=== PATIENT | male | born 1970 | race Caucasian/White ===

== ENCOUNTER 2016-05-22 19:17 | Emergency (ER) | payer BC, OTHER ==
[2016-05-22 19:31] VITALS: PULSE 56; TEMP 97; BMI 26.9
[2016-05-22] MEDS ORDERED: SODIUM CHLORIDE 1,000 ML IV STA (20:40)
[2016-05-22] MEDS ORDERED: PANTOPRAZOLE SODIUM 40 MG in SODIUM CHLORIDE 100 ML IVPB ONE (20:40)
[2016-05-22] MEDS ORDERED: ONDANSETRON 4 MG/2 ML VIAL IVPB ONE (20:40)
[2016-05-22] MEDS ORDERED: FAMOTIDINE 20 MG/50 ML IVPB 50 ML IVPB ONE ×2 (20:40→21:26)
[2016-05-22] MEDS ORDERED: PANTOPRAZOLE SODIUM 100 ML IVPB ONE (21:25)
[2016-05-22] MEDS ORDERED: ONDANSETRON 4 MG/2 ML VIAL ONE (21:25)
[2016-05-22 21:54] LABS: BASOPHIL 0.2 % (0-2.0); EOSINOPHIL 0.1 % (0-4.5); MCH 30.6 pg (25.7-33.7); MCHC 34.4 g/dl (32.0-35.9); MEAN CELL VOLUME 88.9 fl (80-96); MEAN PLT VOLUME 8.4 fl (7.5-11.1); NEUTROPHILS 85.9 % (42.8-82.8); PLATELET COUNT 215 K/MM3 (134-434); WHITE BLOOD COUNT 14.3 K/mm3 (4.0-10.0)
--- NOTE | 2016-05-22 22:03 | PDOC ---
History of Present Illness - General Chief Complaint: Lightheaded Stated Complaint: NAUSEA/VOMITING Time Seen by Provider: 05/22/16 19:47 History Source: Patient Exam Limitations: No Limitations - History of Present Illness Travel History: No Initial Comments: 05/22/16 21:58 46yo Male patient presents to ED c/o n/v, dizziness, lightheadedness, sweating starting this afternoon, after eating a salad. Patient denies CP, Abd pain, back pain, dysuria, diarrhea, constipation, fever, diff breathing, rash, or any other complaints at this time. Timing/Duration: reports: constant Quality: reports: moderate Abdominal Pain Onset Location: denies: RUQ, LUQ, RLQ, LLQ, epigastric, periumbilical, suprapubic, generalized abdomen, flank, unknown, other Pain Radiation: denies: no radiation, RUQ, LUQ, RLQ, LLQ, epigastric, periumbilical, flank, groin, scapula, shoulder, chest, back, other Activities at Onset: reports: eating Treatment Prior to Arrive: worse with: analgesics, antacids, cold pack, heat, laxative, enema, other Aggravating Factors: worse with: None, Defecation, Eating, Emotional upset, Exertion, [place], Movement, Voiding, Change in position Alleviating Factors: worse with: None, Belching, Shallow Breathing, Defecation, Eating, Holding Breath, Passing Gas, Change in Position, Rest, Voiding, Vomiting Past History - Travel Traveled outside of the country in the last 30 days: No Close contact w/someone who was outside of country & ill: No - Past Medical History Allergies/Adverse Reactions: Allergies Allergy/AdvReac Type Severity Reaction Status Date / Time No Known Allergies Allergy Verified 05/22/16 19:31 Home Medications: Ambulatory Orders Ondansetron [Zofran Odt -] 4 mg SL Q6H PRN #20 od.tablet 05/23/16 Pantoprazole Sodium [Protonix -] 40 mg PO DAILY #7 tablet.ec 05/23/16 - Surgical History Abdominal Surgery: Yes (hernia) - Psycho/Social/Smoking Cessation Hx Suicidal Ideation: No Smoking History: Former smoker Have you smoked in the past 12 months: No Information on smoking cessation initiated: No Abd/GI Specific PMHX - Complaint Specific PMHX Colitis: No Diverticulitis: No Gall Bladder Disease: No GERD: No Hepatitis: No Irritable Bowel Synd (IBS): No Pancreatitis: No GI Ulcer Disease: No Review of Systems - Review of Systems Able to Perform ROS?: Yes Is the patient limited Lithuanian proficient: No Constitutional: No: Chills, Fever, Weakness Respiratory: No: Cough, Shortness of Breath, Stridor, Wheezing Cardiac (ROS): Yes: Lightheadedness. No: Chest Pain, Edema, Irregular Heart Rate, Palpitations, Syncope, Chest Tightness ABD/GI: Yes: Nausea, Poor Fluid Intake, Vomiting. No: Abdominal Distended, Abd. Pain w/ defecation, Constipated, Diarrhea, Difficulty Swallowing, Poor Appetite, Rectal Bleeding, Indigestion, Abdominal cramping : No: Burning, Dysuria, Discharge, Frequency, Flank Pain, Hematuria, Pain Musculoskeletal: No: Back Pain Integumentary: Yes: Sweating. No: Bruising, Erythema, Rash Neurological: Yes: Dizziness. No: Headache, Seizure, Tingling, Weakness All Other Systems: Reviewed and Negative *Physical Exam - Vital Signs Last Vital Signs Temp Pulse Resp BP Pulse Ox 97 F L 56 L 18 121/72 99 05/22/16 19:23 05/22/16 19:23 05/22/16 19:23 05/22/16 19:23 05/22/16 19:23 - Physical Exam General Appearance: Yes: Nourished, Appropriately Dressed, Mild Distress. No: Apparent Distress, Moderate Distress, Severe Distress HEENT: positive: EOMI, [place], Normal ENT Inspection, Normal Voice, Symmetrical, TMs Normal, Pharynx Normal. negative: Pharyngeal Erythema, Tonsillar Exudate, Tonsillar Erythema, Nasal Congestion, Rhinorrhea, TM Bulging, TM Dull, TM Erythema Neck: positive: Trachea midline, Supple. negative: Stridor, Lymphadenopathy (R) , Lymphadenopathy (L) Respiratory/Chest: positive: Lungs Clear, Normal Breath Sounds. negative: Respiratory Distress, Accessory Muscle Use, Labored Respiration, Rapid RR, Crackles, Rales, Stridor, Wheezing Cardiovascular: positive: Regular Rhythm, Bradycardia. negative: Edema, JVD, Murmur Gastrointestinal/Abdominal: positive: Soft, Increased Bowel Sounds. negative: Tender, Organomegaly, Distended, Guarding, Rebound, Tenderness Musculoskeletal: positive: Normal Inspection. negative: CVA Tenderness Extremity: positive: Normal Capillary Refill, Normal Inspection, Normal Range of Motion Integumentary: positive: Normal Color, Dry, Warm. negative: Erythema, Moist, Hives, Rash, Swelling, Bruising Neurologic: positive: hook up driver II-XII NML intact, Fully Oriented, Alert, Normal Mood/ Affect, Normal Response, Motor Strength 06/15 ED Treatment Course - LABORATORY CBC & Chemistry Diagram: 05/22/16 21:20 05/22/16 21:20 - ADDITIONAL ORDERS Additional order review: 05/22/16 21:20 RBC 4.55 MCV 88.9 MCHC 34.4 RDW 14.0 MPV 8.4 Neutrophils % 85.9 H Lymphocytes % 10.2 Monocytes % 3.6 L Eosinophils % 0.1 Basophils % 0.2 - Medications Given in the ED: ED Medications Discontinued Medications Generic Name Dose Route Start Last Admin Trade Name Freq PRN Reason Stop Dose Admin Pantoprazole Sodium 40 mg/ 100 mls @ 200 mls/hr 05/22/16 20:40 05/22/16 21:40 Sodium Chloride IVPB 05/22/16 21:09 200 mls/hr ONCE ONE Administration Sodium Chloride 1,000 mls @ 1,000 mls/hr 05/22/16 20:40 05/22/16 21:40 Normal Saline - IV 05/22/16 21:39 1,000 mls/hr ASDIR STA Administration Ondansetron HCl 8 mg 05/22/16 20:40 05/22/16 21:40 Zofran Injection IVPB 05/22/16 20:41 8 mg ONCE ONE Administration Progress Note - Progress Note Progress Note: PATIENT REPORTS FEELING MUCH BETTER AND WOULD LIKE TO BE D/C'D TO HOME. RX ZOFRAN AND PROTONIX *DC/Admit/Observation/Transfer Diagnosis at time of Disposition: Nausea and vomiting Qualifiers: Vomiting type: unspecified Vomiting Intractability: non-intractable Qualified Code(s): R11.2 - Nausea with vomiting, unspecified - Discharge Dispostion Disposition: HOME Condition at time of disposition: Improved Admit: No - Prescriptions Prescriptions: Pantoprazole Sodium [Protonix -] 40 mg PO DAILY #7 tablet.ec Ondansetron [Zofran Odt -] 4 mg SL Q6H PRN #20 od.tablet PRN Reason: Nausea - Patient Instructions Printed Discharge Instructions: DI for Nausea -- Adult Additional Instructions: FOLLOW UP WITH YOUR PRIMARY CARE PROVIDER NEEDED. TAKE MEDICATIONS PRESCRIBED. ZOFRAN FOR NAUSEA. PROTONIX FOR STOMACH ACID. DRINK GATORADE AND WATER TO STAY HYDRATED. RETURN IF ANY OTHER COMPLAINTS AT THIS TIME. Print Language: UZBEK - Post Discharge Activity Work/School Note: Back to Work
--- NOTE | 2016-05-22 22:12 | PDOC ---
*Physical Exam - Vital Signs Last Vital Signs Temp Pulse Resp BP Pulse Ox 97 F L 56 L 18 121/72 99 05/22/16 19:23 05/22/16 19:23 05/22/16 19:23 05/22/16 19:23 05/22/16 19:23 ED Treatment Course - LABORATORY CBC & Chemistry Diagram: 05/22/16 21:20 05/22/16 21:20 - ADDITIONAL ORDERS Additional order review: 05/22/16 21:20 RBC 4.55 MCV 88.9 MCHC 34.4 RDW 14.0 MPV 8.4 Neutrophils % 85.9 H Lymphocytes % 10.2 Monocytes % 3.6 L Eosinophils % 0.1 Basophils % 0.2 - Medications Given in the ED: ED Medications Discontinued Medications Generic Name Dose Route Start Last Admin Trade Name Freq PRN Reason Stop Dose Admin Pantoprazole Sodium 40 mg/ 100 mls @ 200 mls/hr 05/22/16 20:40 05/22/16 21:40 Sodium Chloride IVPB 05/22/16 21:09 200 mls/hr ONCE ONE Administration Famotidine/Sodium Chloride 50 mls @ 100 mls/hr 05/22/16 20:40 05/22/16 22:04 Pepcid 20 Mg Premixed Ivpb - IVPB 05/22/16 21:09 100 mls/hr ONCE ONE Administration Sodium Chloride 1,000 mls @ 1,000 mls/hr 05/22/16 20:40 05/22/16 21:40 Normal Saline - IV 05/22/16 21:39 1,000 mls/hr ASDIR STA Administration Ondansetron HCl 8 mg 05/22/16 20:40 05/22/16 21:40 Zofran Injection IVPB 05/22/16 20:41 8 mg ONCE ONE Administration Medical Decision Making - Medical Decision Making 05/22/16 22:11 agree with care from MYAH Calle *DC/Admit/Observation/Transfer Diagnosis at time of Disposition: Nausea & vomiting - Discharge Dispostion Disposition: HOME Condition at time of disposition: Improved - Prescriptions Prescriptions: Pantoprazole Sodium [Protonix -] 40 mg PO DAILY #7 tablet.ec Ondansetron [Zofran Odt -] 4 mg SL Q6H PRN #20 od.tablet PRN Reason: Nausea - Patient Instructions Printed Discharge Instructions: DI for Nausea -- Adult Additional Instructions: FOLLOW UP WITH YOUR PRIMARY CARE PROVIDER NEEDED. TAKE MEDICATIONS PRESCRIBED. ZOFRAN FOR NAUSEA. PROTONIX FOR STOMACH ACID. DRINK GATORADE AND WATER TO STAY HYDRATED. RETURN IF ANY OTHER COMPLAINTS AT THIS TIME. Print Language: SLOVENIAN - Post Discharge Activity Work/School Note: Back to Work
[2016-05-22 22:13] LABS: ALK PHOS 46 U/L (45-117); AMYLASE 75 U/L (25-115); ANION GAP 11 (8-16); BILIRUBIN,TOTAL 0.5 mg/dL (0.2-1.0); CO2 24 mmol/L (21-32); COCKROFT - GAULT 155.44; CREATININE 0.8 mg/dL (0.7-1.3); GLUCOSE,RANDOM 121 mg/dL (74-106); SGOT/AST 24 U/L (15-37); SGPT/ALT 30 U/L (12-78); TOT PROT 7.2 g/dl (6.4-8.2)
[2016-05-23 00:39] VITALS: BP 129/63
== END 2016-05-23 00:38 | disposition home or self-care (01) ==
LOC: JER 19:17
PROC: 3E033GC Introduction of Other Therapeutic Substance into Peripheral Vein, Percutaneous Approach (ICD-10-PCS; principal; 2016-05-22)
PROC: 3E033GC Introduction of Other Therapeutic Substance into Peripheral Vein, Percutaneous Approach (ICD-10-PCS; 2016-05-22)
DX: R11.2 Nausea with vomiting, unspecified (principal)
CPT/HCPCS: 36415; 80053; 82150; 83690; 85025; 99282-25